=== PATIENT | male | born 1970 | race Caucasian/White ===

== ENCOUNTER 2017-12-27 16:58 | Emergency (ER) | payer SELFPAY ==
--- NOTE | 2017-12-27 17:54 | ER ---
Nurse's Notes [facility] Name: Walter Ac Age: 47 yrs Sex: Male : 1970 Arrival Date: 12/27/2017 Time: 17:01 Bed 30 Private MD: None, None Diagnosis: Gastroenteritis Presentation: 12/27 17:47 Presenting complaint: Patient states: intermittent abd cramping, N/V/D since last ss night. Transition of care: patient was not received from another setting of care. Onset of symptoms was December 26, 2017. Risk Assessment: Do you want to hurt yourself or someone else? Patient reports no desire to harm self or others. Initial Sepsis Screen: Does the patient meet any 2 criteria? HR > 90 bpm. Does the patient have a suspected source of infection? No. Patient's initial sepsis screen is negative. Care prior to arrival: None. 17:47 Method Of Arrival: Ambulatory ss 17:47 Acuity: HOANG 3 ss Triage Assessment: 17:56 GI: Reports lower abdominal pain. rv Historical: - Allergies: 17:49 No Known Allergies; ss - Home Meds: 17:49 None [Active]; ss - PMHx: 17:49 None; ss - PSHx: 17:49 None; ss - Immunization history:: Adult Immunizations up to date. - Social history:: Smoking status: Patient uses tobacco products, smokes one pack cigarettes per day. - Ebola Screening: : Patient denies exposure to infectious person Patient denies travel to an Ebola-affected area in the 21 days before illness onset. Screenin:55 Abuse screen: Denies threats or abuse. Denies injuries from another. Nutritional rv screening: No deficits noted. Tuberculosis screening: No symptoms or risk factors identified. Fall Risk None identified. Assessment: 17:54 General: Appears in no apparent distress. comfortable, Behavior is calm, cooperative. rv Pain: Complains of pain in abdomen. Neuro: Level of Consciousness is awake, alert, obeys commands, Oriented to person, place, time, situation. Cardiovascular: Capillary refill < 3 seconds. Respiratory: Airway is patent. GI: Abdomen is flat, non-distended. : No signs and/or symptoms were reported regarding the genitourinary system. EENT: No signs and/or symptoms were reported regarding the EENT system. Derm: Skin is intact. Vital Signs: 17:49 BP 126 / 86; Pulse 100; Resp 15; Temp 98.2(O); Pulse Ox 98% on R/A; Weight 81.65 kg; Height 5 ft. 10 in. (177.80 cm); Pain 0/10; 18:03 BP 127 / 77; Pulse 93; Pulse Ox 99% on R/A; rv 17:49 Body Mass Index 25.83 (81.65 kg, 177.80 cm) ED Course: 17:01 Patient arrived in ED. sb2 17:02 None, None is Private Physician. sb2 17:43 Sergio Abraham PA is PHCP. jr8 17:43 Frankie Menendez MD is Attending Physician. jr8 17:49 Triage completed. ss 17:49 Arm band placed on right wrist. ss 17:55 No provider procedures requiring assistance completed. Patient did not have IV access rv during this emergency room visit. 17:56 Patient has correct armband on for positive identification. Bed in low position. Call rv light in reach. Side rails up X 1. Adult w/ patient. Administered Medications: No medications were administered Outcome: 17:54 Discharge ordered by . jr8 17:56 Discharged to home ambulatory. rv 17:56 Condition: good 17:56 Discharge instructions given to patient, family, Instructed on discharge instructions, follow up and referral plans. medication usage. 18:04 Patient left the ED. rv Signatures: Daphne Aranda RN RN Sergio Abraham PA PA jr8 Joyce Mcdowell 2 Yamil Avitia RN RN rv
--- NOTE | 2017-12-27 17:54 | EDPHYS ---
Physician Documentation [facility] Name: Walter Ac Age: 47 yrs Sex: Male : 1970 Arrival Date: 12/27/2017 Time: 17:01 Bed 30 Private MD: None, None ED Physician Frankie Menendez HPI: 12/27 17:55 This 47 yrs old Male presents to ER via Ambulatory with complaints of jr8 Nausea/Vomiting/Diarrhea. 17:55 The patient presents to the emergency department with nausea, vomiting, diarrhea. jr8 Onset: The symptoms/episode began/occurred acutely, yesterday. Possible causes: unknown. The symptoms are aggravated by nothing. The symptoms are alleviated by nothing. Associated signs and symptoms: The patient has no apparent associated signs or symptoms. Severity of symptoms: At their worst the symptoms were moderate in the emergency department the symptoms have improved. The patient has not experienced similar symptoms in the past. The patient has not recently seen a physician. Historical: - Allergies: 17:49 No Known Allergies; ss - Home Meds: 17:49 None [Active]; ss - PMHx: 17:49 None; ss - PSHx: 17:49 None; ss - Immunization history:: Adult Immunizations up to date. - Social history:: Smoking status: Patient uses tobacco products, smokes one pack cigarettes per day. - Ebola Screening: : Patient denies exposure to infectious person Patient denies travel to an Ebola-affected area in the 21 days before illness onset. ROS: 17:55 Eyes: Negative for injury, pain, redness, and discharge, ENT: Negative for injury, jr8 pain, and discharge, Neck: Negative for injury, pain, and swelling, Cardiovascular: Negative for chest pain, palpitations, and edema, Respiratory: Negative for shortness of breath, cough, wheezing, and pleuritic chest pain, Back: Negative for injury and pain, MS/Extremity: Negative for injury and deformity, Skin: Negative for injury, rash, and discoloration, Neuro: Negative for headache, weakness, numbness, tingling, and seizure. 17:55 Abdomen/GI: Positive for nausea, vomiting, and diarrhea, abdominal cramps, Negative for abdominal distension, anorexia, dysphagia, hematemesis, black/tarry stool, rectal pain, rectal bleeding, bowel incontinence, flatulence. Exam: 17:55 ENT: Nares patent. No nasal discharge, no septal abnormalities noted. Tympanic jr8 membranes are normal and external auditory canals are clear. Oropharynx with no redness, swelling, or masses, exudates, or evidence of obstruction, uvula midline. Mucous membranes moist. Neck: Trachea midline, no thyromegaly or masses palpated, and no cervical lymphadenopathy. Supple, full range of motion without nuchal rigidity, or vertebral point tenderness. No Meningismus. Cardiovascular: Regular rate and rhythm with a normal S1 and S2. No gallops, murmurs, or rubs. Normal PMI, no JVD. No pulse deficits. Respiratory: Lungs have equal breath sounds bilaterally, clear to auscultation and percussion. No rales, rhonchi or wheezes noted. No increased work of breathing, no retractions or nasal flaring. Abdomen/GI: Soft, non-tender, with normal bowel sounds. No distension or tympany. No guarding or rebound. No evidence of tenderness throughout. Back: No spinal tenderness. No costovertebral tenderness. Full range of motion. Skin: Warm, dry with normal turgor. Normal color with no rashes, no lesions, and no evidence of cellulitis. MS/ Extremity: Pulses equal, no cyanosis. Neurovascular intact. Full, normal range of motion. Neuro: Awake and alert, GCS 15, oriented to person, place, time, and situation. Cranial nerves II-XII grossly intact. Motor strength 5/5 in all extremities. Sensory grossly intact. Cerebellar exam normal. Normal gait. Vital Signs: 17:49 BP 126 / 86; Pulse 100; Resp 15; Temp 98.2(O); Pulse Ox 98% on R/A; Weight 81.65 kg; ss Height 5 ft. 10 in. (177.80 cm); Pain 0/10; 18:03 BP 127 / 77; Pulse 93; Pulse Ox 99% on R/A; rv 17:49 Body Mass Index 25.83 (81.65 kg, 177.80 cm) ss MDM: 17:43 Patient medically screened. jr8 17:51 Data reviewed: vital signs, nurses notes, and as a result, I will discharge patient. jr8 Data interpreted: Pulse oximetry: on room air is 98 %. Interpretation: normal. Counseling: I had a detailed discussion with the patient and/or guardian regarding: the historical points, exam findings, and any diagnostic results supporting the discharge/admit diagnosis, the need for outpatient follow up, a family practitioner, to return to the emergency department if symptoms worsen or persist or if there are any questions or concerns that arise at home. ED course: Patient does not want any lab work. Stated that he is feeling better. Wants to know if he can just get something for the nausea. Patients abdomen soft and benign. No abnormal vitals. More then likely to be gastroenteritis with the n/v/d. Will send home on medications with strict return precautions . Administered Medications: No medications were administered Disposition: 18:08 Co-signature as Attending Physician, Frankie Menendez MD. rn Disposition: 12/27/17 17:54 Discharged to Home. Impression: Gastroenteritis. - Condition is Stable. - Discharge Instructions: Viral Gastroenteritis, Adult. - Prescriptions for Bentyl 20 mg Oral Tablet - take 1 tablet by ORAL route every 6 hours As needed; 20 tablet. Zofran 4 mg Oral Tablet - take 1 tablet by ORAL route every 12 hours As needed; 12 tablet. - Medication Reconciliation Form, Thank You Letter, Antibiotic Education, Prescription Opioid Use, Work release form form. - Follow up: Private Physician; When: 1 - 2 days; Reason: Recheck today's complaints, Continuance of care, Re-evaluation by your physician. - Problem is new. - Symptoms are unchanged. Signatures: Dispatcher [employer] EDMS Frankie Menendez MD MD rn Smirch, Shelby, RN RN ss Roszak, Josh, PA PA jr8 Yamil Avitia RN RN rv Corrections: (The following items were deleted from the chart) 18:04 17:54 12/27/2017 17:54 Discharged to Home. Impression: Gastroenteritis. Condition is rv Stable. Forms are Medication Reconciliation Form, Thank You Letter, Antibiotic Education, Prescription Opioid Use. Follow up: Private Physician; When: 1 - 2 days; Reason: Recheck today's complaints, Continuance of care, Re-evaluation by your physician. Problem is new. Symptoms are unchanged. jr8
== END 2017-12-27 18:04 | disposition home or self-care (01) ==
LOC: ER 16:58
DX: K52.9 Noninfective gastroenteritis and colitis, unspecified (principal); F17.210 Nicotine dependence, cigarettes, uncomplicated
CPT/HCPCS: 99281